=== PATIENT | female | born 1935 | race Caucasian/White ===

== ENCOUNTER → 2017-02-21 | Outpatient (CLI) | payer MEDICARE, BC ==
--- NOTE | 2017-02-21 11:09 | US ---
EXAMINATION TYPE: US venous doppler duplex LE RT DATE OF EXAM: 02/21/2017 9:49 AM COMPARISON: NONE CLINICAL HISTORY: M79.604 PAIN IN RT LEG. RT lower lateral ankle slow healing ulcer; Wound Care [place] r patient; prior Right arm DVT and is on Coumadin; AFIB too. SIDE PERFORMED: Right TECHNIQUE: The lower extremity deep venous system is examined utilizing real time linear array sonog marissa with graded compression, doppler sonography and color-flow sonography. VESSELS IMAGED: Common Femoral Vein Deep Femoral Vein Greater Saphenous Vein * Femoral Vein Popliteal Vein Small Saphenous Vein * Proximal Calf Veins (* superficial vessels) Right Leg: Negative for Acute DVT. Intimal wall thickening is noted at valves at upper Femoral Vein and upper Deep Femoral Vein.; No valvular insufficiency is detected in right deep venous system. Grayscale, color doppler, spectral doppler imaging performed of the deep veins of the lower extremiti es. There is normal flow, compressibility, vascular waveforms. IMPRESSION: No evidence of deep venous thrombosis of the right lower extremity.
== END | disposition home or self-care (01) ==
LOC: RADUSWWP 09:22
PROVIDERS: ATTEND Internal Medicine Infectious Disease
DX: I87.2 Venous insufficiency (chronic) (peripheral) (principal); M79.604 Pain in right leg
CPT/HCPCS: 93923

== ENCOUNTER 2017-04-09 06:46 | Day surgery (SDC) | payer MEDICARE, BC ==
[~2017-04-09 06:46] MED LIST: HEPARIN SODIUM,PORCINE 5,000 UNIT/ML 1 ML VIAL SQ ONE; LACTATED RINGERS 1,000 ML IV SCH; LIDOCAINE 1% 20 ML VIAL (10MG/ML) FOR IV START INTRADERMA PRN; ONDANSETRON 4 MG/2 ML VIAL IVP ONE; Pre Op ABX Message 1 EACH MISC MISCELLANE ONE
[2017-04-09 07:47] LABS: INR 1.2 (<1.2); Prothrombin Time 11.6 sec (9.0-12.0)
[2017-04-09] MEDS ORDERED: METHYLENE BLUE 10 MG/ML (10 ML VIAL) INJ ONE ×2 (07:48→09:50)
[2017-04-09] MEDS ORDERED: LIDOCAINE 1% INJ 10MG/ML (20 ML MDV) SQ ONE (08:19)
[2017-04-09] MEDS ORDERED: ePHEDrine SULFATE/0.9% NACL/PF 50 MG/5 ML SYRINGE IV ONE (09:34)
[2017-04-09] MEDS ORDERED: PROPOFOL 10 MG/ML 20 ML VIAL IV ONE (09:34)
[2017-04-09] MEDS ORDERED: ACETAMINOPHEN IV (For NPO) 1,000 MG/100 ML VIAL ONE (09:34)
[2017-04-09] MEDS ORDERED: LIDOCAINE 1% INJ 10MG/ML (20 ML MDV) ONE (09:34)
[2017-04-09] MEDS ORDERED: SODIUM CHLORIDE 0.9% 50 ML with ceFAZolin 2,000 MG IV ONE ×2 (09:34)
[2017-04-09] MEDS ORDERED: fentaNYL (PF) 50 MCG/ML 2 ML AMP ONE (09:34)
--- NOTE | 2017-04-09 09:53 | NM ---
EXAMINATION TYPE: NM sentinel node injection DATE OF EXAM: 04/09/2017 COMPARISON: NONE HISTORY: Recent diagnosis of left breast cancer TECHNIQUE AND FINDINGS: The procedure of sentinel lymph node injection was explained to the patient. The benefits, alternatives, and risks were discussed. An informed consent was then obtained. Overlying skin is cleaned with sterile alcohol. Lidocaine buffered with bicarbonate was used as anes thetic into the skin and subcutaneous tissue surrounding the nipple. Following this, 535 uCi Tc 99m Filtered Sulfur Colloid was injected into 4 equivalent doses at 12, 3, 6, and 9:00 position surroundi ng the left nipple intradermally. The injection sites were massaged by mineral technologist for 10 minutes after injection. T he patient tolerated the procedure well without any immediate complication. The patient was kept in the radiology department for short stay after the procedure and then taken to surgery for surgical pr ocedure what is presumed intraoperative gamma probe will be used for sentinel lymph node detection. IMPRESSION: Successful left breast radiotracer injection for sentinel node localization as above.
[2017-04-09] MEDS ORDERED: BUPIVACAIN-EPI 0.5%-1:200,000 30 ML VIAL SQ ONE ×2 (10:06)
--- NOTE | 2017-04-09 11:17 | P.OP ---
Date of Procedure: 04/09/17 Preoperative Diagnosis: Left breast cancer Atrial fibrillation Cardiac pacemaker Postoperative Diagnosis: Same Procedure(s) Performed: Left breast wire localization lumpectomy (partial mastectomy) using two wires Left sentinel lymph node biopsy using radioactive tracer and methylene blue Closure of the resulting defect in 3 layers- Cavity measures 8.5x4.5 x 3 cm Anesthesia: ANAIS, local Surgeon: Sandy Galvin Estimated Blood Loss (ml): 10 IV fluids (ml): 700 Pathology: other Condition: other (ASA 3) Disposition: PACU Indications for Procedure: 82 years old female presents with biopsy-proven left breast cancer. Informed consent obtained and she elected to undergo left breast lumpectomy with sentinel lymph node biopsy with possible axillary lymph node dissection. She had wire localization 2 by radiology for the single lesion. Operative Findings: [place] lymph node 2 negative for malignancy Description of Procedure: The patient underwent wire localization x 2 of left breast abnormality and injection of radioisotope in the radiology department. She was brought to the operating room and placed in supine position with both arms out. 3 mL of methylene blue was injected in the subdermal plane at 4 quadrants around the areola and the breast was massaged for 5 minutes . General anesthesia was given.No muscle relaxants were given. Chlorhexidine was used to prep the left breast and left axilla taking care not to dislodge the wires exiting from the left breast. Sterile drapes were applied. A timeout was performed to verify correct patient and correct procedure. Patient was confirmed to receive perioperative IV antibiotics, heparin 5000 units subcutaneous injection for the VTE prophylaxis and bilateral SCDs were placed. A hand-held gamma probe was used to detect signals overlying the breast. Radioisotope signal obtained in the axilla just above the inferior hairline. A 3 cm incision was made below the left axillary hairline and dissection was carried out to identify blue node. After entering the clavicopectoral fascia, three blue areas were identified. The gamma probe was placed in contact with the node and high counts were recorded. Three blue nodes were identified and sent as sentinel lymph node for frozen section. [place] lymph nodes were negative for malignancy. The resulting cavity was checked for hemostasis. This was closed in layers using 3-0 Vicryl interrupted sutures and 4-0 Monocryl running subcuticular sutures. A 3 cm elliptical skin incision was made overlying the two guidewires exiting laterally along the left breast. The wire was delivered into the wound. Dissection was then taken down circumferentially using Bovie electrocautery taking care to include the entire localizing wires and a wide margin of grossly normal tissue upto the chest wall.The specimen and the localizing wire were removed. Inking was done as per protocol except yellow marked lateral and orange marked medial margins.The specimen was sent to radiology which confirmed that the wire and clip were within the excised specimen. Surgical clips were placed along the cavity service a marker . The cavity was checked for hemostasis and measured 8.5x 4.5x 3 cm The cavity was then closed in 3 layers using 3-0 interrupted Vicryl and 4-0 running Monocryl subcuticular sutures. Dermabond was applied. Sponge, instrument and needle count were correct 2. Patient tolerated the procedure well and was taken to postanesthesia care unit in stable condition Final Pathologic Diagnosis A. SOFT TISSUE, LEFT AXILLA, BIOPSY OF SENTINEL NODE #1: BENIGN VASCULARIZED FIBROADIPOSE TISSUE. LYMPH NODE TISSUE IS NOT IDENTIFIED. B. LYMPH NODE, LEFT AXILLA, SENTINEL LYMPH NODE BIOPSY #2: LYMPH NODE NEGATIVE FOR METASTASIS. CYTOKERATIN 7 AND LARRY IMMUNOHISTOCHEMICAL STAINS ARE CONFIRMATORY (CONTROLS APPROPRIATE). C. LYMPH NODE, LEFT AXILLA, SENTINEL LYMPH NODE BIOPSY #3: LYMPH NODE NEGATIVE FOR METASTASIS. CYTOKERATIN 7 AND LARRY IMMUNOHISTOCHEMICAL STAINS ARE CONFIRMATORY (CONTROLS APPROPRIATE). D. 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 FIBROCYSTIC CHANGE (FIBROSIS, CYST FORMATION, APOCRINE METAPLASIA, ADENOSIS, COLUMNAR CELL CHANGE FOCALLY WITH FLAT EPITHELIAL ATYPIA, AND DUCT HYPERPLASIA FOCALLY WITH ATYPIA CONSISTENT WITH ATYPICAL DUCTAL HYPERPLASIA). INTRADUCTAL PAPILLOMA WITH SCLEROSIS. BIOPSY SITE CHANGE. Notes SURGICAL PATHOLOGY CANCER CASE SUMMARY - INVASIVE CARCINOMA OF THE BREAST Specimen Identification Procedure: Excision with image guided localization. Lymph Node Sampling: [place] lymph node. Specimen Laterality: Left. Tumor Size - Size of Largest Invasive Carcinoma: Greatest dimension of largest focus of invasion greater than 1 mm: 12 mm. Histologic Type: Invasive Ductal Carcinoma with focal cribriform features. Histologic Grade: [place] Histologic Score Glandular (Acinar)/Tubular Differentiation: 3. Nuclear Pleomorphism: 3. Mitotic Rate: 1. Overall Grade: Grade 2 (score of 7). Tumor Focality: Single focus of invasive carcinoma. Ductal Carcinoma In Situ (DCIS) : DCIS is present. Extensive Intraductal Component: Not identified though DCIS is identified outside of the invasive focus. Nuclear Grade: Grade II to Grade III (intermediate to high). Necrosis: Present, central (expansive "comedo" necrosis). Margins: Invasive carcinoma: Margins uninvolved by invasive carcinoma. Distance from closest margin: Invasive carcinoma is present within 2 mm from the black inked margin of resection and 3 mm from the purple inked margin of resection (purple inked margin indicated on the requisition form to be posterior ). DCIS: Margins negative for duct carcinoma in situ. Distance from closest margin: Carcinoma in situ is less than 1 mm from the purple inked margin (indicated on the requisition form as posterior), less than 0.5 mm from the green inked margin and less than 0.5 mm from margin with purple and green ink (blue ink is also identified but favored to be contaminant). Regional Lymph Nodes Total Number of Lymph Nodes Examined ([place] and non-sentinel): 2. Number of [place] Lymph Nodes Examined: 2. Pathologic Staging Primary Tumor: pT1c (tumor greater than 10 mm but less than or equal to 20 mm in greatest dimension). Regional Lymph Nodes Modifier: SN (only sentinel nodes evaluated). Category: pN0 (i-) Distant Metastasis: No regional lymph node metastasis histologically, negative IHC. Ancillary Studies: Ancillary studies were previously performed at an outside institution to include HER2 studies by IHC and FISH. Immunohistochemical stains are performed with appropriate controls and demonstrate focal reactivity around tumor cells with cytokeratin 5/6 and p63 consistent with duct carcinoma insitu. The tumor cells are non-reactive with cytokeratin 5/6.
[2017-04-09 11:18] VITALS: TEMP 96.8
[2017-04-09 12:06] VITALS: RESP 18
[2017-04-09 13:00] VITALS: BP 120/63; PULSE 62
--- NOTE | 2017-04-09 16:22 | MM ---
EXAMINATION TYPE: MG pre op needle loc LT, MG surgical specimen LT DATE OF EXAM: 04/09/2017 COMPARISON: NONE CLINICAL HISTORY: Left breast cancer, surgical excision with request for mammographic guided needle localization. TECHNIQUE: Needle localization with wire placement and surgical excision of area of concern in the left breast. FINDINGS: The procedure of needle localization with wire placement and than surgical excision was explained to the patient. Benefits, alternatives, and risks were discussed. An informed consent was then obtained. The shortest pathway for procedure was chosen from lateral to medial. The overlying skin was prepped and draped in usual sterile fashion. Lidocaine was used as anesthetic into the skin and subcutaneous tissue up to the level of area of concern. A 7 cm needle was used. It was placed via a lateral medial approach under mammographic guidance. Subsequent 90 degrees mammogram show the needle to be in satisfactory position relative to the clip. At this point, wire was placed and the needle was withdrawn. The wire was fixed to patient's skin. Images were marked for surgeon. Reinforced segment was adjacent to the biopsy marker. A second 7 cm needle was inserted posterior to the clip at the anterior margin of the mammographic mass at the request of the surgeon after lidocaine was utilized as anesthetic and the skin and subcutaneous tissues up to the area of concern. It was placed via a lateral medial approach under mammographic guidance. Subsequent 90 degree mammogram showed the needle to be in satisfactory position in relation to the mammographic mass. The wire was placed and the needle was withdrawn. The wire was fixed to the patient's skin and images were marked for the surgeon. The wire is in satisfactory position with the reinforced segment within the anterior margin of the mammographic mass. The patient tolerated the procedure well without any immediate complication. The patient was kept in the radiology department for short stay after the procedure and then taken to surgery for surgical excision. Targeted clip and mammographic mass as well as and wire are identified in specimen mammogram. The patient was kept in hospital for short stay after the procedure and then discharged home in stable condition. IMPRESSION: Successful, uncomplicated needle localization with wire placement and surgical excision of the mammographic mass, full extent of the localization wires and biopsy marker in the left breast, full pathology results to follow. Pathology Results: Malignant A. SOFT TISSUE, LEFT AXILLA, BIOPSY OF SENTINEL NODE #1: BENIGN VASCULARIZED FIBROADIPOSE TISSUE. LYMPH NODE TISSUE IS NOT IDENTIFIED. B. LYMPH NODE, LEFT AXILLA, SENTINEL LYMPH NODE BIOPSY #2: LYMPH NODE NEGATIVE FOR METASTASIS. CYTOKERATIN 7 AND LARRY IMMUNOHISTOCHEMICAL STAINS ARE CONFIRMATORY (CONTROLS APPROPRIATE). C. LYMPH NODE, LEFT AXILLA, SENTINEL LYMPH NODE BIOPSY #3: LYMPH NODE NEGATIVE FOR METASTASIS. CYTOKERATIN 7 AND LARRY IMMUNOHISTOCHEMICAL STAINS ARE CONFIRMATORY (CONTROLS APPROPRIATE). D. 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 FIBROCYSTIC CHANGE (FIBROSIS, CYST FORMATION, APOCRINE METAPLASIA, ADENOSIS, COLUMNAR CELL CHANGE FOCALLY WITH FLAT EPITHELIAL ATYPIA, AND DUCT HYPERPLASIA FOCALLY WITH ATYPIA CONSISTENT WITH ATYPICAL DUCTAL HYPERPLASIA). INTRADUCTAL PAPILLOMA WITH SCLEROSIS. BIOPSY SITE CHANGE. Recommendation Surgical consult of the left breast. KEON
== END 2017-04-09 13:23 | disposition home or self-care (01) ==
LOC: OR 06:46
PROVIDERS: ATTEND Surgery
DX: D05.12 Intraductal carcinoma in situ of left breast (principal); N60.32 Fibrosclerosis of left breast; N60.02 Solitary cyst of left breast; N60.82 Other benign mammary dysplasias of left breast; N60.22 Fibroadenosis of left breast; N60.92 Unspecified benign mammary dysplasia of left breast; D24.2 Benign neoplasm of left breast; I10 Essential (primary) hypertension; E03.9 Hypothyroidism, unspecified; I48.91 Unspecified atrial fibrillation; Z79.01 Long term (current) use of anticoagulants; Z86.718 Personal history of other venous thrombosis and embolism; Z87.891 Personal history of nicotine dependence; I49.9 Cardiac arrhythmia, unspecified; Z82.49 Family history of ischemic heart disease and other diseases of the circulatory system; G51.0 Bell's palsy; Z95.0 Presence of cardiac pacemaker; G62.9 Polyneuropathy, unspecified; H93.19 Tinnitus, unspecified ear; Z79.899 Other long term (current) drug therapy; E55.9 Vitamin D deficiency, unspecified; Z91.011 Allergy to milk products
CPT/HCPCS: 19301; 38500; 88305; 85610; 88342; 88331; 88307; 88341; 76098; 19281; 38792; A9541; J1644; J2405; J2001; Q9968; J3010; J0690; J0131; J2704

== ENCOUNTER 2017-10-25 10:35 | Emergency (ER) | payer MEDICARE, BC ==
[2017-10-25 10:57] VITALS: RESP 18
--- NOTE | 2017-10-25 11:16 | ED ---
General Adult HPI - General Chief complaint: Recheck/Abnormal Lab/Rx Stated complaint: Muscle aches and sore throat Time Seen by Provider: 10/25/17 10:45 Source: patient, RN notes reviewed Mode of arrival: ambulatory Limitations: no limitations - History of Present Illness Initial comments: This is an 82-year-old female who presents emergency Department stating since Friday she has been more fatigued has a little bit of a sore throat has a slight headache that comes and goes and states that she has diffuse abdominal pain. Patient states it is in no particular area in her abdomen just kind of diffusely and she believes it might be secondary to some constipation which she gets occasionally. Patient denies any fever chills. Patient states she might be a little more short of breath than normal. Patient denies any dysuria hematuria urinary frequency. Patient denies any significant cough patient denies any chest pain or palpitations. - Related Data Home Medications Medication Instructions Recorded Confirmed B Complex-Vit C-Vit E-Zinc [Z-Bec] 1 tab PO DAILY 02/04/17 10/20/17 Cholecalciferol [Vitamin D3] 1,000 unit PO DAILY 02/04/17 10/20/17 Folic Acid 0.8 mg PO DAILY 02/04/17 10/20/17 Garlic 1 each PO DAILY 02/04/17 10/20/17 Levothyroxine Sodium [Levoxyl] 112 mcg PO QAM 02/04/17 10/20/17 Niacin (Inositol Niacinate) 500 mg PO BID 02/04/17 10/20/17 [Niacin 500 mg Capsule] Warfarin [Coumadin] 5 mg PO HS 02/04/17 10/20/17 amLODIPine [Norvasc] 2.5 mg PO QAM 02/04/17 10/20/17 Cyanocobalamin (Vitamin B-12) 1 tab PO DAILY 04/04/17 10/20/17 [Vitamin B-12] L.acidoph,Paracasei, B.lactis 1 tab PO DAILY 04/04/17 10/20/17 [Probiotic] Melatonin 1.5 mg PO HS PRN 04/04/17 10/20/17 Metoprolol Succinate (ER) [Toprol 25 mg PO QAM 04/04/17 10/20/17 XL] Valsartan/Hydrochlorothiazide 1 tab PO QAM 04/04/17 10/20/17 [Valsartan-Hctz 320-25 mg Tab] [facility] 1 tab PO DAILY 04/04/17 10/20/17 Letrozole [Femara] 2.5 mg PO DAILY 09/03/17 10/20/17 Omeprazole [PriLOSEC] 20 mg PO AC-BRKFST 09/03/17 10/20/17 Previous Rx's Medication Instructions Recorded Doxycycline Monohydrate [Monodox] 100 mg PO Q12HR #20 cap 10/16/17 Allergies Allergy/AdvReac Type Severity Reaction Status Date / Time No Known Allergies Allergy Verified 10/25/17 10:57 Review of Systems ROS Statement: Those systems with pertinent positive or pertinent negative responses have been documented in the HPI. ROS Other: All systems not noted in ROS Statement are negative. Past Medical History Past Medical History: Cancer, Deep Vein Thrombosis (DVT), Hypertension, Osteoarthritis (OA), Thyroid Disorder Additional Past Medical History / Comment(s): RECENT PATIENT IN WOUND CENTER, WOUND ON RIGHT heel, has dressing on. 03/2017 left breast lumpectomy, 2009: Right breast precancerous cell, removed surically, no mastectomy, had radiation @ [facility]/Dr. JOYA. [facility] 2006 RESIDUAL DROOPING LEFT EYE AND LEFT SIDE OF FACE, SHINGLES History of Any Multi-Drug Resistant Organisms: None Reported Past Surgical History: Appendectomy, Breast Surgery, Cholecystectomy, Hysterectomy, Joint Replacement, Pacemaker, Tonsillectomy Additional Past Surgical History / Comment(s): Cataract surgery bilat eyes 2008. Bilat knee replacement 2012 Dr. Lindsay. Neck surgery pinched nerves. left breast lumpectomy Past Anesthesia/Blood Transfusion Reactions: No Reported Reaction Type of Cardiac Device: Permanent Pacemaker Device Placement Date:: 2011 Past Psychological History: No Psychological Hx Reported Smoking Status: Former smoker Past Alcohol Use History: Rare Past Drug Use History: None Reported - Past Family History Father History Unknown: Yes Family Medical History: Congestive Heart Failure (CHF) Additional Family Medical History / Comment(s): rheumatic fever. Mother History Unknown: Yes Family Medical History: Liver Disease General Exam - General Exam Comments Initial Comments: GENERAL: Patient is well-developed and well-nourished. Patient is nontoxic and well- hydrated and is in mild distress. ENT: Neck is soft and supple. No significant lymphadenopathy is noted. Oropharynx is clear. Moist mucous membranes. Neck has full range of motion without eliciting any pain. EYES: The sclera were anicteric and conjunctiva were pink and moist. Extraocular movements were intact and pupils were equal round and reactive to light. Eyelids were unremarkable. PULMONARY: Unlabored respirations. Good breath sounds bilaterally. No audible rales rhonchi or wheezing was noted. CARDIOVASCULAR: There is a regular rate and rhythm without any murmurs gallops or rubs. ABDOMEN: Soft and nontender with normal bowel sounds. No palpable organomegaly was noted. There is no palpable pulsatile mass. SKIN: Skin is clear with no lesions or rashes and otherwise unremarkable. NEUROLOGIC: Patient is alert and oriented x3. Cranial nerves II through XII are grossly intact. Motor and sensory are also intact. Normal speech, volume and content. Symmetrical smile. MUSCULOSKELETAL: Normal extremities with adequate strength and full range of motion. No lower extremity swelling or edema. No calf tenderness. Patient has a boot on the right leg which she does not want me to remove because the doctor just soft. LYMPHATICS: No significant lymphadenopathy is noted PSYCHIATRIC: Normal psychiatric evaluation. Limitations: no limitations Course Vital Signs 10/25/17 10:53 Temperature 97.9 F Pulse Rate 89 Respiratory 18 Rate Blood Pressure 123/74 O2 Sat by Pulse 97 Oximetry Medical Decision Making - Medical Decision Making EKG shows a paced rhythm at 71 bpm QRS is 80 QT interval 396 QTC is 4:30. Patient has T-wave inversions in leads V4 V5 and V6 which were her intrinsic rhythm as well as leads 2 and 3. However there is no recent old EKG to compare to. Patient is not experiencing any chest pain. - Lab Data Result diagrams: 10/25/17 11:40 10/25/17 11:40 Lab Results 10/25/17 10/25/17 10/25/17 Range/Units 11:40 11:40 11:40 WBC 7.2 (3.8-10.6) k/uL RBC 5.51 H (3.80-5.40) m/uL Hgb 15.8 (11.4-16.0) gm/dL Hct 48.2 H (34.0-46.0) % MCV 87.4 (80.0-100.0) fL MCH 28.8 (25.0-35.0) pg MCHC 32.9 (31.0-37.0) g/dL RDW 14.0 (11.5-15.5) % Plt Count 175 (150-450) k/uL Neutrophils % 72 % Lymphocytes % 21 % Monocytes % 5 % Eosinophils % 1 % Basophils % 0 % Neutrophils # 5.2 (1.3-7.7) k/uL Lymphocytes # 1.5 (1.0-4.8) k/uL Monocytes # 0.3 (0-1.0) k/uL Eosinophils # 0.1 (0-0.7) k/uL Basophils # 0.0 (0-0.2) k/uL PT 38.6 H (9.0-12.0) sec INR 4.3 H (<1.2) D-Dimer 0.30 (<0.60) mg/L FEU Sodium 134 L (137-145) mmol/L Potassium 3.7 (3.5-5.1) mmol/L Chloride 97 L (98-107) mmol/L Carbon Dioxide 25 (22-30) mmol/L Anion Gap 12 mmol/L BUN 17 (7-17) mg/dL Creatinine 0.56 (0.52-1.04) mg/dL Est GFR (CKD-EPI)AfAm >90 (>60 ml/min/1.73 sqM) Est GFR (CKD-EPI)NonAf 87 (>60 ml/min/1.73 sqM) Glucose 99 (74-99) mg/dL Calcium 8.9 (8.4-10.2) mg/dL Total Bilirubin 1.3 (0.2-1.3) mg/dL AST 43 H (14-36) U/L ALT 33 (9-52) U/L Alkaline Phosphatase 65 (38-126) U/L Troponin I (0.000-0.034) ng/mL Total Protein 6.4 (6.3-8.2) g/dL Albumin 3.8 (3.5-5.0) g/dL Urine Color Urine Appearance (Clear) Urine pH (5.0-8.0) Ur Specific [place] (1.001-1.035) Urine Protein (Negative) Urine Glucose (UA) (Negative) Urine Ketones (Negative) Urine Blood (Negative) Urine Nitrite (Negative) Urine Bilirubin (Negative) Urine Urobilinogen (<2.0) mg/dL Ur Leukocyte Esterase (Negative) Urine RBC (0-5) /hpf Urine WBC (0-5) /hpf Ur Squamous Epith Cells (0-4) /hpf Urine Bacteria (None) /hpf Hyaline Casts (0-2) /lpf Urine Mucus (None) /hpf Influenza Type A RNA (Not Detectd) Influenza Type B (PCR) (Not Detectd) 10/25/17 10/25/17 10/25/17 Range/Units 11:40 11:40 11:40 WBC (3.8-10.6) k/uL RBC (3.80-5.40) m/uL Hgb (11.4-16.0) gm/dL Hct (34.0-46.0) % MCV (80.0-100.0) fL MCH (25.0-35.0) pg MCHC (31.0-37.0) g/dL RDW (11.5-15.5) % Plt Count (150-450) k/uL Neutrophils % % Lymphocytes % % Monocytes % % Eosinophils % % Basophils % % Neutrophils # (1.3-7.7) k/uL Lymphocytes # (1.0-4.8) k/uL Monocytes # (0-1.0) k/uL Eosinophils # (0-0.7) k/uL Basophils # (0-0.2) k/uL PT (9.0-12.0) sec INR (<1.2) D-Dimer (<0.60) mg/L FEU Sodium (137-145) mmol/L Potassium (3.5-5.1) mmol/L Chloride (98-107) mmol/L Carbon Dioxide (22-30) mmol/L Anion Gap mmol/L BUN (7-17) mg/dL Creatinine (0.52-1.04) mg/dL Est GFR (CKD-EPI)AfAm (>60 ml/min/1.73 sqM) Est GFR (CKD-EPI)NonAf (>60 ml/min/1.73 sqM) Glucose (74-99) mg/dL Calcium (8.4-10.2) mg/dL Total Bilirubin (0.2-1.3) mg/dL AST (14-36) U/L ALT (9-52) U/L Alkaline Phosphatase (38-126) U/L Troponin I <0.012 (0.000-0.034) ng/mL Total Protein (6.3-8.2) g/dL Albumin (3.5-5.0) g/dL Urine Color Yellow Urine Appearance Clear (Clear) Urine pH 7.0 (5.0-8.0) Ur Specific [place] 1.017 (1.001-1.035) Urine Protein Trace H (Negative) Urine Glucose (UA) Negative (Negative) Urine Ketones Negative (Negative) Urine Blood Negative (Negative) Urine Nitrite Negative (Negative) Urine Bilirubin Negative (Negative) Urine Urobilinogen <2.0 (<2.0) mg/dL Ur Leukocyte Esterase Small H (Negative) Urine RBC 1 (0-5) /hpf Urine WBC 4 (0-5) /hpf Ur Squamous Epith Cells 2 (0-4) /hpf Urine Bacteria Rare H (None) /hpf Hyaline Casts 1 (0-2) /lpf Urine Mucus Rare H (None) /hpf Influenza Type A RNA Not Detected (Not Detectd) Influenza Type B (PCR) Detected H (Not Detectd) Disposition Clinical Impression: Influenza Disposition: HOME SELF-CARE Condition: Good Instructions: Influenza (ED) Is patient prescribed a controlled substance at d/c from ED?: No Referrals: Flavio Dalton MD [Primary Care Provider] - 1-2 days Time of Disposition: 12:56
--- NOTE | 2017-10-25 11:58 | XR ---
EXAMINATION TYPE: XR chest 2V DATE OF EXAM: 10/25/2017 HISTORY: Difficulty breathing . REFERENCE: Previous study dated 12/15/2012. FINDINGS: There are multiple previous fusions within the cervical spine. There is a bipolar pacemaker in place on the left. The lungs are overinflated. There is some atelectasis along the major fissure on the right. Pleural s paces are clear. The heart is mildly enlarged. There is unfolding and ectasia of the thoracic aorta. IMPRESSION: 1. COPD. 2. CARDIOMEGALY. 3. MILD ATELECTASIS, RIGHT MIDDLE LOBE.
[2017-10-25 12:04] LABS: Basophils % (A) 0 %; Eosinophils # (A) 0.1 k/uL (0-0.7); Eosinophils % (A) 1 %; HCT 48.2 % (34.0-46.0); HGB 15.8 gm/dL (11.4-16.0); Lymphocytes # (A) 1.5 k/uL (1.0-4.8); Lymphocytes % (A) 21 %; MCH 28.8 pg (25.0-35.0); MCHC 32.9 g/dL (31.0-37.0); MCV 87.4 fL (80.0-100.0); Mean Platelet Volume 8.7; Monocytes # (A) 0.3 k/uL (0-1.0); Monocytes % (A) 5 %; Neutrophils # (A) 5.2 k/uL (1.3-7.7); Neutrophils % (A) 72 %; Platelet Count 175 k/uL (150-450); RBC 5.51 m/uL (3.80-5.40); WBC 7.2 k/uL (3.8-10.6)
[2017-10-25 12:11] LABS: Appearance,Urine Clear (Clear); Bacteria,Urine Rare /hpf; Bilirubin,Urine Negative (Negative); Blood,Urine Negative (Negative); Color,Urine Yellow; Glucose,Urine (UA) Negative (Negative); Hyaline Casts,Urine 1 /lpf (0-2); Ketones,Urine Negative (Negative); Leukocyte Esterase,Urine Small (Negative); Mucus,Urine Rare /hpf; Nitrite,Urine Negative (Negative); Protein,Urine Trace (Negative); RBC,Urine 1 /hpf (0-5); Specific Gravity,Urine 1.017 (1.001-1.035); Squamous Epithelial Cell,Urine 2 /hpf (0-4); Urobilinogen,Urine <2.0 mg/dL (<2.0); WBC,Urine 4 /hpf (0-5)
[2017-10-25 12:17] LABS: Albumin 3.8 g/dL (3.5-5.0); Anion Gap 12 mmol/L; Calcium 8.9 mg/dL (8.4-10.2); Carbon Dioxide 25 mmol/L (22-30); Chloride 97 mmol/L (98-107); Glucose 99 mg/dL (74-99); Sodium 134 mmol/L (137-145); Total Bilirubin 1.3 mg/dL (0.2-1.3); Total Protein 6.4 g/dL (6.3-8.2)
[2017-10-25 12:18] LABS: D-Dimer 0.3 mg/L FEU (<0.60); INR 4.3 (<1.2); Prothrombin Time 38.6 sec (9.0-12.0)
[2017-10-25 12:25] LABS: Potassium 3.7 mmol/L (3.5-5.1)
[2017-10-25 12:26] LABS: ALT 33 U/L (9-52); AST 43 U/L (14-36); Alkaline Phosphatase 65 U/L (38-126); Blood Urea Nitrogen 17 mg/dL (7-17)
[2017-10-25 13:08] VITALS: BP 138/87; PULSE 87; TEMP 97.4
== END 2017-10-25 13:08 | disposition home or self-care (01) ==
LOC: EC 10:35
DX: J11.1 Influenza due to unidentified influenza virus with other respiratory manifestations (principal); R06.02 Shortness of breath; R10.84 Generalized abdominal pain; I10 Essential (primary) hypertension; E07.9 Disorder of thyroid, unspecified; Z86.718 Personal history of other venous thrombosis and embolism; Z87.891 Personal history of nicotine dependence; Z85.3 Personal history of malignant neoplasm of breast; Z79.01 Long term (current) use of anticoagulants; Z79.899 Other long term (current) drug therapy
CPT/HCPCS: 36415; 71046; 80053; 81001; 84484; 85025; 85379; 85610; 87502; 93005; 99284

== ENCOUNTER → 2018-10-14 | Outpatient (CLI) | payer MEDICARE, BC ==
--- NOTE | 2018-10-18 19:37 | ENG ---
ELECTRONYSTAGMOGRAM REPORT VNG INDICATIONS: Vertigo starting in July 2018, gradual getting worse as one spell a day, lasting 10- 30 seconds. Can be precipitated by looking up or head back position, bending over or head down position. Denies hearing loss with steady tinnitus bilaterally and no pain, fullness or pressure in either ear. Saccades shows intact peak velocities accuracies and latencies. Case with fixation shows no nystagmus in any of the directions of gaze including centrally with vision denied. Tracking is fair showing no significant breakups. Optokinetic nystagmus shows asymmetry at faster speeds, greater than 50%. Static position testing shows no nystagmus in any of the positions tested including sitting, supine, head right, head left, right side and left side with eyes open or vision denied. Brooklyn-Hallpike maneuver was not completed due to neck and back pain. Caloric testing shows a 10% unilateral left lower weakness, which is within normal limits. IMPRESSIONS: Fair tracking and optokinetic nystagmus asymmetry greater than 50% are indicated favoring central nervous system dysfunction. Other features of this VNG are unremarkable. MMODL / IJN: [id number] /
== END | disposition home or self-care (01) ==
LOC: NEUROMAIN 06:46
PROVIDERS: ATTEND Psychiatry & Neurology Neurology
DX: H55.00 Unspecified nystagmus (principal)
CPT/HCPCS: 92537; 92540

== ENCOUNTER 2019-08-16 12:26 | Inpatient (IN) | payer MEDICARE, BC ==
--- NOTE | 2019-08-16 14:18 | ED ---
Neuro HPI - General Chief Complaint: Neuro Symptoms/Deficit Stated Complaint: stroke Time Seen by Provider: 08/16/19 12:30 Source: EMS, RN notes reviewed Mode of arrival: EMS Limitations: altered mental status, physical limitation - History of Present Illness Is the patient presenting with stroke symptoms?: Yes Last Known Well Date: 08/15/19 Last Known Well Time: 19:30 Initial Comments: The patient is an 84-year-old female with past medical history of DVT, hypertension, pacemaker who presents to the emergency department with altered mental status. The patient is a transfer from [facility]. Family is at bedside and provides the history. They state that the patient was last known well yesterday around 7:30 PM when someone had spoken with her. They then attempted to call her around 9 and there was no answer. Family went to the house today and they found her sitting upright in a chair with altered mental status. She had visual deviation to the left complete paralysis of her right side. She was unable to answer any questions. They called EMS and the patient was taken into [facility] where they found a very large MCA stroke. The patient was outside the TPA window as well as a thrombectomy window. They were requesting the patient to be DO NOT RESUSCITATE and DO NOT INTUBATE. The patient was transferred to our facility for further neurologic evaluation. The patient continues to have forced left deviation and weakness on the right side. She is unable to answer any questioning. Family states that she has not felt well for a couple of days. The remainder of the HPI is unable to be obtained because the patient's current status - Related Data Home Medications: Previous Rx's Medication Instructions Recorded Atropine Ophth Soln 1% 5Ml [Isopto 1 drop SUBLINGUAL Q4H PRN #1 bottle 08/19/19 Atropine 1% 5Ml] LORazepam [Ativan] 0.5 mg PO Q4H PRN #3 tab 08/19/19 MORPHINE ORAL BELL CONC 20mg/mL 5 mg PO Q4H PRN 3 Days #9 ml 08/19/19 [Roxanol Oral Soln Conc 20MG/ML] Allergies/Adverse Reactions: Allergies Allergy/AdvReac Type Severity Reaction Status Date / Time No Known Allergies Allergy Verified 08/16/19 12:41 Review of Systems ROS Statement: Those systems with pertinent positive or pertinent negative responses have been documented in the HPI. ROS Other: All systems not noted in ROS Statement are negative. General Exam Limitations: altered mental status, physical limitation General appearance: lethargic Head exam: Present: atraumatic, normocephalic, normal inspection ENT exam: Present: normal exam, mucous membranes moist, normal external ear exam Respiratory exam: Present: normal lung sounds bilaterally. Absent: respiratory distress, wheezes, rales, rhonchi, stridor Cardiovascular Exam: Present: regular rate, normal rhythm, normal heart sounds. Absent: systolic murmur, diastolic murmur, rubs, gallop, clicks GI/Abdominal exam: Present: soft, normal bowel sounds. Absent: distended, tenderness, guarding, rebound, rigid Extremities exam: Present: other (paralyzed right upper and lower extremity) Neurological exam: Present: other (deviated to the left. Hemiparalysis right upper and lower extremity. Does not follow commands. ) Stroke MDM - Lab Data Result diagrams: 08/19/19 06:10 08/19/19 06:10 - Medical Decision Making Upon arrival patient was placed into room 8. A thorough history and physical exam was obtained. The patient continues to have left-sided deviation. She is able to squeeze her left upper extremity however does not have any movement of her right side. Review of the patient's labs and imaging demonstrates a CT that shows large area cytotoxic edema involving the left MCA territory compatible with acute CVA. Hyperdense left middle cerebral artery. No midline shift. I called and discussed the case with Dr. Kumar. He did recommend 3% saline. I called the pharmacy who stated that that had to go through a central line. I did discuss this with family. They want comfort measures for the patient at this time as well as medical management. They state that the patient would not want to be intubated, have CPR or have a central line. They are refusing treatment with the 3%. I called and discussed this with Dr. Duarte. I also discussed the case with Dr. brewer. Patient will be admitted to the floor. Dr. Duarte does present to evaluates her down here. The patient remained stable awaiting a bed Past Medical History Past Medical History: Cancer, CVA/TIA, Deep Vein Thrombosis (DVT), Hypertension, Osteoarthritis (OA), Thyroid Disorder Additional Past Medical History / Comment(s): RECENT PATIENT IN [facility] C[facility], WOUND ON RIGHT heel, has dressing on. 03/2017 left breast lumpectomy, 2009:Right breast precancerous cell, removed surically, no mastectomy, had radiation @ [facility]/Dr. JOYA. DIAL'S PALSY 2007 RESIDUAL DROOPING LEFT EYE AND LEFT SIDE OF FACE, SHINGLES History of Any Multi-Drug Resistant Organisms: None Reported Past Surgical History: Appendectomy, Breast Surgery, Cholecystectomy, Hysterectomy, Joint Replacement, Pacemaker, Tonsillectomy Additional Past Surgical History / Comment(s): Cataract surgery bilat eyes 2008. Bilat knee replacement 2012 Dr. Lindsay. Neck surgery pinched nerves. left breast lumpectomy Past Anesthesia/Blood Transfusion Reactions: No Reported Reaction Type of Cardiac Device: Permanent Pacemaker Device Placement Date:: 2011 Past Psychological History: No Psychological Hx Reported Smoking Status: Former smoker Past Alcohol Use History: Rare Past Drug Use History: None Reported - Past Family History Father History Unknown: Yes Family Medical History: Congestive Heart Failure (CHF) Additional Family Medical History / Comment(s): rheumatic fever. Mother History Unknown: Yes Family Medical History: Liver Disease Course Vital Signs 08/16/19 08/16/19 08/16/19 12:32 12:34 13:00 Temperature 98.1 F Pulse Rate 73 75 59 L Respiratory 16 Rate Blood Pressure 193/106 190/96 O2 Sat by Pulse 92 L 95 100 Oximetry 08/16/19 08/16/19 08/16/19 13:13 13:30 14:00 Temperature 98.1 F Pulse Rate 74 69 65 Respiratory 16 16 Rate Blood Pressure 181/88 181/88 180/87 O2 Sat by Pulse 100 100 99 Oximetry 08/16/19 08/16/19 08/16/19 14:30 15:00 15:30 Temperature Pulse Rate 61 71 70 Respiratory 16 Rate Blood Pressure 179/88 176/83 185/83 O2 Sat by Pulse 99 100 94 L Oximetry 08/16/19 08/16/19 08/16/19 16:00 16:30 17:00 Temperature Pulse Rate 72 69 80 Respiratory 16 16 Rate Blood Pressure 179/80 166/83 174/86 O2 Sat by Pulse 94 L 94 L 93 L Oximetry 08/16/19 08/16/19 08/16/19 17:30 18:44 19:40 Temperature Pulse Rate 84 84 90 Respiratory 16 Rate Blood Pressure 181/86 181/86 187/100 O2 Sat by Pulse 94 L 94 L 96 Oximetry 08/16/19 08/16/19 08/16/19 20:05 20:47 21:03 Temperature Pulse Rate 87 98 94 Respiratory 16 16 16 Rate Blood Pressure 142/85 197/92 201/95 O2 Sat by Pulse 97 97 96 Oximetry 08/16/19 21:31 Temperature 98.4 F Pulse Rate Respiratory Rate Blood Pressure O2 Sat by Pulse Oximetry Disposition Clinical Impression: Cerebrovascular accident (CVA), Right hemiparesis Disposition: ADMITTED IP TO THIS HOSP Condition: Poor Is patient prescribed a controlled substance at d/c from ED?: No Decision to Admit Reason: Admit from EC Decision Date: 08/16/19 Decision Time: 15:14
[2019-08-16] MEDS ORDERED: NALOXONE 0.4 MG/ML 1 ML VIAL IV PRN (15:16)
[2019-08-16] MEDS: SODIUM CHLORIDE 0.9% 1,000 ML IV SCH (15:53)
--- NOTE | 2019-08-16 17:04 | P.CNNES ---
History of Present Illness Consult date: 08/16/19 Requesting physician: Agnieszka Charlton Reason for Consult: Acute CVA History of Present Illness: Patient is a 84-year-old right-handed female, with history of atrial fibrillation, on anticoagulation with Eliquis. Patient also has history of dementia, but lives on her own. Patient's family states that she does miss some doses of medication, and on the average misses perhaps 3 doses of Eliquis a week. Patient's daughter talked to her last night at 7:30 PM and she was fine. Her other daughter tried to talk to her at 9:45 PM but patient did not respond. She thought that patient may have slept earlier. This morning family went in at 8:45 AM, and patient was in the recliner, with obvious aphasia, right hemiplegic. Patient was brought to [facility]. Patient underwent computed tomography scan of the head, which revealed a large stroke in the left MCA vascular territory. He was transferred to [facility] for neurological evaluation. Patient at present is DO NOT RESUSCITATE, DO NOT INTUBATE, and family does not want any aggressive treatment. They want to keep patient in this hospital with conservative treatment. The tests not available from [facility]. Patient's family was present at this time. Patient is laying comfortably in the bed. Please refer to examination below. Patient is a nonsmoker, does not drink, no diabetes. Patient was not a candidate for TPA, as she clearly came outside the window for TPA. Patient is not a candidate for mechanical thrombectomy either as she came 12 hours after last known well, and computed tomography scan already showing acute ischemia. Review of Systems ROS unobtainable: due to mental status Past Medical History Past Medical History: Cancer, CVA/TIA, Deep Vein Thrombosis (DVT), Hypertension, Osteoarthritis (OA), Thyroid Disorder Additional Past Medical History / Comment(s): RECENT PATIENT IN [facility]OUND CENTER, WOUND ON RIGHT heel, has dressing on. 03/2017 left breast lumpectomy, 2009:Right breast precancerous cell, removed surically, no mastectomy, had radiation @ [facility]/Dr. JOYA. DIAL'S PALSY 2006 RESIDUAL DROOPING LEFT EYE AND LEFT SIDE OF FACE, SHINGLES History of Any Multi-Drug Resistant Organisms: None Reported Past Surgical History: Appendectomy, Breast Surgery, Cholecystectomy, Hysterectomy, Joint Replacement, Pacemaker, Tonsillectomy Additional Past Surgical History / Comment(s): Cataract surgery bilat eyes 2008. Bilat knee replacement 2012 Dr. Lindsay. Neck surgery pinched nerves. left breast lumpectomy Past Anesthesia/Blood Transfusion Reactions: No Reported Reaction Type of Cardiac Device: Permanent Pacemaker Device Placement Date:: 2011 Past Psychological History: No Psychological Hx Reported Smoking Status: Former smoker Past Alcohol Use History: Rare Past Drug Use History: None Reported - Past Family History Father History Unknown: Yes Family Medical History: Congestive Heart Failure (CHF) Additional Family Medical History / Comment(s): rheumatic fever. Mother History Unknown: Yes Family Medical History: Liver Disease Medications and Allergies Home Medications Medication Instructions Recorded Confirmed Type Cholecalciferol [Vitamin D3] 1,000 unit PO DAILY 02/04/17 08/16/19 History Levothyroxine Sodium [Levoxyl] 112 mcg PO QAM 02/04/17 08/16/19 History Metoprolol Succinate (ER) [Toprol 25 mg PO QAM 04/04/17 08/16/19 History XL] Letrozole [Femara] 2.5 mg PO DAILY 09/03/17 08/16/19 History Omeprazole [PriLOSEC] 20 mg PO AC-BRKFST 09/03/17 08/16/19 History Apixaban [Eliquis] 2.5 mg PO BID 08/16/19 08/16/19 History Atorvastatin [Lipitor] 10 mg PO HS 08/16/19 08/16/19 History Calcium Carbonate 500 mg PO BID 08/16/19 08/16/19 History Donepezil [Aricept] 5 mg PO BID 08/16/19 08/16/19 History Losartan/Hydrochlorothiazide 1 tab PO DAILY 08/16/19 08/16/19 History [Losartan-Hctz 100-25 mg Tab] Memantine [Namenda] 5 mg PO BID 08/16/19 08/16/19 History Multivitamins, Thera [Multivitamin 1 tab PO DAILY 08/16/19 08/16/19 History (formulary)] Allergies Allergy/AdvReac Type Severity Reaction Status Date / Time No Known Allergies Allergy Verified 08/16/19 12:41 Physical Examination - Vital Signs Vital Signs: Vital Signs Temp Pulse Resp BP Pulse Ox 08/16/19 15:00 81 16 179/80 97 08/16/19 14:00 75 16 179/88 97 08/16/19 13:13 98.1 F 74 16 181/88 100 08/16/19 12:34 98.1 F 75 16 193/106 95 Intake and Output 08/16/19 08/16/19 08/16/19 06:59 14:59 22:59 Other: Weight 77.1 kg On examination patient is an 84-year-old female, laying comfortably in the bed. Patient is obviously aphasic, with some comprehension. Patient is alert and awake. Patient has left gaze preference. Her pupils are round and reacting. Patient has right visual field deficit. Patient has right facial asymmetry. Patient is right hemiplegic, with arm is completely flaccid, but she does have some movement of her leg. She moves her left side equally. Patient has plantar extensor on the right side. Sensory to touch could not be assessed. Cerebellar functions could not be assessed. Tone is increased in the right arm. Bulk of muscles normal. Assessment and Plan Assessment: * Acute ischemic CVA, left MCA vascular territory. CVA likely cardioembolic from patient's history of atrial fibrillation. Patient has been somewhat noncompliant with Eliquis, and misses about 3 times a week. * Dementia Plan: * CT head of the brain was reviewed. It revealed a very large CVA involving almost the entire left MCA vascular territory. There is slight mass effect, with compression of the left lateral ventricle as compared to the right. No midline shift. I reviewed patient's computed tomography scan of the head on the computer with the patient's family, and answered all their questions. * Patient at present is DO NOT RESUSCITATE, DO NOT INTUBATE, and patient's family wants conservative treatment. * We discussed about trying hypertonic saline for cerebral edema, but family declined. * Nothing by mouth for now. May need an NG tube. * DVT prophylaxis. * Discussed with patient's family in detail.
[2019-08-16] MEDS ORDERED: LORazepam 2 MG/ML INJ IV PRN (18:27)
[2019-08-16] MEDS: PANTOPRAZOLE 40 MG/10 ML VIAL IVP SCH (18:41)
[2019-08-16 18:57] LABS: Appearance,Urine Clear (Clear); Bilirubin,Urine Negative (Negative); Blood,Urine Small (Negative); Color,Urine Yellow; Glucose,Urine (UA) Negative (Negative); Ketones,Urine Trace (Negative); Leukocyte Esterase,Urine Negative (Negative); Mucus,Urine Rare /hpf; Nitrite,Urine Negative (Negative); PH, Urine 6.5 (5.0-8.0); Protein,Urine 1+ (Negative); RBC,Urine 27 /hpf (0-5); Specific Gravity,Urine 1.026 (1.001-1.035); WBC,Urine 1 /hpf (0-5)
--- NOTE | 2019-08-16 23:04 | HP ---
HISTORY AND PHYSICAL DATE OF SERVICE: 08/16/2019 CHIEF COMPLAINTS: Unresponsiveness and weakness of the right side of the body. HISTORY OF PRESENT ILLNESS: This 84-year-old woman with a past medical history of multiple medical problems including significant dementia, history of CVA, TIA, history of DVT, history of DJD, history of wound on the right heel, being followed by Dr. Mary Anne Warren in the outpatient setting, was noted to have significant change in mental status this morning. The patient was last known conscious at 7:30 when somebody spoke to her, but this morning the patient was sitting upright in a chair slumped with change in mental status, significant weakness of the of the right-sided body was noted and the patient taken to [facility]. A large left MCA stroke was noted. The patient was a NO CODE at that time. The patient was apparently outside the window of the tPA, but however the patient transferred to [facility] for Neurology evaluation at this time. The neurologist has seen the patient and the family does not want any aggressive treatment at this time. Because of the multiple complex medical issues, the patient is NO CODE and the patient is slightly more responsive according to the family compared to this morning. The patient admitted for further evaluation and treatment. There is no there is no history of fever, rigors or chills. No history of trauma. The patient unable to give any coherent history. Most of the history taken from my discussion with staff and review of the chart and discussion with the ER physician at this time. PAST MEDICAL HISTORY: History of CVA, TIA, DVT, hypertension, DJD, history of hypothyroidism, history of appendectomy, surgery. MEDICATIONS: Home medications are reviewed and include: 1. Aricept 5 mg p.o. b.i.d. 2. Prilosec 20 mg a.c. breakfast. 3. Multivitamins one p.o. daily. 4. Toprol-XL 25 mg q.h.s. 5. Namenda 5 mg p.o. b.i.d. 6. Losartan hydrochlorothiazide 100/25 p.o. daily. 7. Levothyroxine 112 mcg p.o. q.a.m. 8. Femara 2.5 mg p.o. daily. 9. Vitamin D3 1000 daily. 10.Calcium carbonate 500 mg p.o. b.i.d. 11.Lipitor 10 mg q.h.s. 12.Eliquis 2.5 mg b.i.d. ALLERGIES: None. FAMILY HISTORY: Family history of CHF and rheumatic fever in the family. SOCIAL HISTORY: Previous history of smoking. No history of current smoking or alcohol intake. REVIEW OF SYSTEMS: Review of systems could not be taken, the patient is stuporous. PHYSICAL EXAM: Pulse is 80. Blood pressure 117/85, respirations 16, temp is normal. Pulse ox 93% on room air. HEENT: Conjunctivae normal. Oral mucosa moist. NECK is no jugular venous distention. No carotid bruit. No lymph node enlargement. cardiovascular systems respiration the bases a few scattered rhonchi and crackles. ABDOMEN: Soft, nontender. No mass. LEGS no edema. No swelling. NERVOUS SYSTEM grossly significant right-sided weakness present. Otherwise, skin no ulcers, rashes or bleeding. Joints no active arthropathy. LABS: At this time not available. ASSESSMENT: 1. Acute left MCA territory CVI causing right-sided hemiplegia. 2. Change in mental status metabolic toxic encephalopathy, acute on chronic. 3. History of dementia. 4. History of history of deep vein thrombosis. 5. Hypertension. 6. History of degenerative joint disease. 7. Hypothyroidism. 8. Chronic wound on the right heel. 9. History of right breast surgery. 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 11.History of cholecystectomy. 12.History of degenerative joint disease. 13.Remote history of nicotine dependence. 14.NO CODE, NO CPR and NO VENT. RECOMMENDATIONS AND DISCUSSION: In this 84-year-old woman who presented with multiple complex medical issues, we will monitor the patient closely, continue the current medications, management and symptomatic treatment. We will initiate antiplatelet agents. Otherwise monitor closely. As mentioned earlier, discussed the case at length with the family. The family did not want any invasive management including any central line placement. The patient has significant edema. The overall prognosis extremely guarded because of the extensive dense stroke and multiple other medical issues and we will continue to monitor. We will obtain PT, OT evaluation and speech pathology evaluation. Monitor closely. Monitor sensorium closely. Neuro checks and continue conservative line of treatment. As mentioned earlier, the patient is NO CODE NO CPR NO VENT at this time. Further recommendations to follow. A copy of this dictation being forwarded to Dr. Mary Anne Warren who is the primary physician. MMODL / IJN: [id number] /
[2019-08-17] MEDS: HEPARIN SODIUM,PORCINE 5,000 UNIT/ML 1 ML VIAL SQ SCH ×3 (04:29→21:51)
[2019-08-17] MEDS: LEVOTHYROXINE 112 MCG TAB PO SCH (04:30)
[2019-08-17 06:50] LABS: Basophils # (A) 0.2 k/uL (0-0.2); Basophils % (A) 1 %; Eosinophils # (A) 0.1 k/uL (0-0.7); Eosinophils % (A) 1 %; HCT 50.1 % (34.0-46.0); HGB 15.8 gm/dL (11.4-16.0); Lymphocytes # (A) 2.3 k/uL (1.0-4.8); Lymphocytes % (A) 15 %; MCHC 31.5 g/dL (31.0-37.0); MCV 92.1 fL (80.0-100.0); Mean Platelet Volume 8.4; Monocytes # (A) 0.6 k/uL (0-1.0); Monocytes % (A) 4 %; Neutrophils # (A) 11.3 k/uL (1.3-7.7); Neutrophils % (A) 76 %; Platelet Count 336 k/uL (150-450); RBC 5.43 m/uL (3.80-5.40); RDW 14.3 % (11.5-15.5); WBC 14.8 k/uL (3.8-10.6)
[2019-08-17 07:03] LABS: Calcium 8.2 mg/dL (8.4-10.2); Potassium 4.2 mmol/L (3.5-5.1)
--- NOTE | 2019-08-17 08:55 | XR ---
EXAMINATION TYPE: XR chest 1V portable DATE OF EXAM: 08/17/2019 COMPARISON: Prior chest x-ray dated 10/25/2017, 08/16/2019 HISTORY: Congestive heart failure TECHNIQUE: Single frontal view of the chest is obtained. FINDINGS: Patient is rotated. Postop changes are noted within the cervical thoracic spine. Pacemaker is stable with leads in the right atrium and ventricle, heart is likely enlarged. Aorta is aneurysma l and dense. No evident pneumothorax or pleural effusion. Heart is enlarged. Patchy density present i n the retrocardiac region. Interstitium is increased. Surgical clips present in the left breast regio n. IMPRESSION: Rotated exam. Possible subsegmental atelectasis. Aortic aneurysm, cardiomegaly. There ma y be a component of interstitial edema.
[2019-08-17 11:28] VITALS: BMI 17.9
[2019-08-17] MEDS: PANTOPRAZOLE 40 MG/10 ML VIAL IVP SCH (12:20)
--- NOTE | 2019-08-17 15:09 | P.PN ---
Subjective Progress Note Date: 08/17/19 Patient appears much more lethargic today. Patient's one of the daughter and multiple other relatives were present today. Patient has head deviated to the right. Per patient's daughter, she did wake up slightly earlier, wiped her face with the wash cloth that the children gave it to her. She opened eyes briefly. She has been mostly sleepy. Objective - Vital Signs Vital signs: Vital Signs Temp 97.5 F L 08/17/19 08:00 Pulse 89 08/17/19 11:53 Resp 16 08/17/19 11:53 BP 144/81 08/17/19 11:53 Pulse Ox 97 08/17/19 11:53 Intake & Output 08/16/19 08/17/19 08/17/19 18:59 06:59 18:59 Intake Total 0 Output Total 120 Balance -120 0 Weight 77.1 kg 49 kg 49 kg Intake: Oral 0 Output: Urine 120 Other: Voiding Method Indwelling Catheter Indwelling Catheter # Voids 1 - Labs CBC & Chem 7: 08/17/19 06:23 08/17/19 06:23 Labs: Abnormal Lab Results - Last 24 Hours (Table) 08/16/19 08/17/19 08/17/19 Range/Units 18:34 06:23 06:23 WBC 14.8 H (3.8-10.6) k/uL RBC 5.43 H (3.80-5.40) m/uL Hct 50.1 H (34.0-46.0) % Neutrophils # 11.3 H (1.3-7.7) k/uL Sodium 136 L (137-145) mmol/L Glucose 127 H (74-99) mg/dL Calcium 8.2 L (8.4-10.2) mg/dL Urine Protein 1+ H (Negative) Urine Ketones Trace H (Negative) Urine Blood Small H (Negative) Urine RBC 27 H (0-5) /hpf Urine Mucus Rare H (None) /hpf Assessment and Plan Assessment: * Acute ischemic CVA, left MCA vascular territory. CVA likely cardioembolic from patient's history of atrial fibrillation. Patient has been somewhat noncompliant with Eliquis, and misses about 3 times a week. * Dementia Plan: * Patient has a very large CVA, involving almost the entire left MCA vascular territory. Patient is globally aphasic and right hemiplegic. * Patient at present is DO NOT RESUSCITATE, DO NOT INTUBATE, and patient's family wants conservative treatment. * I would suggest palliative consultation to discuss goals of care. I would suggest consultation with hospice. * Patient's daughter discussed about repeating computed tomography scan of the head. As repeat computed tomography scan of the head will not alter any changes in her overall management, therefore there is no point of repeating the computed tomography scan of head. Patient's daughter agreed. * Continue comfort care.
[2019-08-17] MEDS: SODIUM CHLORIDE 0.9% 1,000 ML IV SCH (21:37)
--- NOTE | 2019-08-17 22:20 | PN ---
PROGRESS NOTE DATE OF SERVICE: 08/17/2019 This 84-year-old woman with a past medical history significant for dementia was admitted with significant stroke on the right side. The patient continues to be stuporous at this time. The patient has significant weakness of the right side. Minimal movement of the left side is observed. Neurology following the patient as mentioned. Please note that the family had decided not to undergo any intensive evaluations or treatment at this time. The patient is currently NO CODE. The patient being closely monitored on telemetry. PAST MEDICAL HISTORY: Reviewed. REVIEW OF SYSTEMS: Review of systems could not be taken because the patient is stuporous. CURRENT MEDICATIONS: Reviewed and include: 1. Heparin 5000 subcu b.i.d. 2. Synthroid 112 mcg. 3. Ativan 1 mg p.r.n. 4. Narcan p.r.n. 5. Protonix. PHYSICAL EXAM: Patient is alert, oriented x3. Pulse is 89. Blood pressure 140/81, respirations 16, temp is normal. Pulse ox 97% on room air. HEENT: Conjunctivae normal. NECK: No JVD. CARDIOVASCULAR: S1, S2 muffled. RESPIRATORY: Breath sounds diminished in the bases. A few scattered rhonchi. ABDOMEN: Soft. Nontender. LEGS are no edema. No swelling. CENTRAL NERVOUS SYSTEM: Significant right hemiplegia present. LABS: WBC 14.8, hemoglobin 15.8. UA noted. ASSESSMENT: 1. Acute left-sided MCA territory stroke causing right-sided hemiplegia. 2. Change in mental status, metabolic encephalopathy, acute on chronic. 3. History of dementia. 4. History of deep vein thrombosis. 5. Hypertension. 6. History of degenerative joint disease. 7. Hypothyroidism. 8. Chronic wound on the right heel history. 9. History of right breast surgery. 10.History of Ring's palsy in 2006. 11.History of cholecystectomy. 12.History of degenerative joint disease. 13.Remote history of nicotine dependence. 14.NO CODE, NO CPR, NO VENT. RECOMMENDATIONS AND DISCUSSION: I recommend to continue current medications, management and treatment. Otherwise, as mentioned earlier, the family has opted not to have any TPA or any other invasive testing or invasive evaluation. We will continue to monitor. PT/OT evaluation. Speech pathology evaluation. Neurology has been consulted. The patient had further multiple evaluations in [facility]. The portable chest x-ray done today showed some atelectasis. We will continue to monitor. Further recommendations to follow. See orders for details. MMODL / IJN: [id number] /
[2019-08-18] MEDS: LEVOTHYROXINE 112 MCG TAB PO SCH (05:24)
[2019-08-18] MEDS: SODIUM CHLORIDE 0.9% 1,000 ML IV SCH (05:55)
[2019-08-18 06:44] LABS: Basophils # (A) 0.2 k/uL (0-0.2); Basophils % (A) 1 %; Eosinophils # (A) 0.1 k/uL (0-0.7); Eosinophils % (A) 1 %; HCT 47.8 % (34.0-46.0); HGB 15.9 gm/dL (11.4-16.0); Lymphocytes # (A) 2.2 k/uL (1.0-4.8); Lymphocytes % (A) 14 %; MCH 30.2 pg (25.0-35.0); MCHC 33.3 g/dL (31.0-37.0); MCV 90.8 fL (80.0-100.0); Mean Platelet Volume 8.6; Monocytes # (A) 0.8 k/uL (0-1.0); Monocytes % (A) 5 %; Neutrophils # (A) 11.7 k/uL (1.3-7.7); Neutrophils % (A) 75 %; Platelet Count 338 k/uL (150-450); RBC 5.27 m/uL (3.80-5.40); RDW 14.4 % (11.5-15.5); WBC 15.6 k/uL (3.8-10.6)
[2019-08-18 07:02] LABS: African American GFR (CKD) >90 (>60 ml/min/1.73 sqM); Anion Gap 9 mmol/L; Blood Urea Nitrogen 14 mg/dL (7-17); Calcium 7.6 mg/dL (8.4-10.2); Carbon Dioxide 22 mmol/L (22-30); Chloride 104 mmol/L (98-107); Glucose 121 mg/dL (74-99); Non-African American GFR(CKD) 84 (>60 ml/min/1.73 sqM); Potassium 3.8 mmol/L (3.5-5.1); Sodium 135 mmol/L (137-145)
[2019-08-18] MEDS: PANTOPRAZOLE 40 MG/10 ML VIAL IVP SCH (08:07)
[2019-08-18] MEDS: HEPARIN SODIUM,PORCINE 5,000 UNIT/ML 1 ML VIAL SQ SCH ×2 (08:07→20:58)
--- NOTE | 2019-08-18 14:54 | P.PN ---
Subjective Progress Note Date: 08/18/19 Principal diagnosis: This is an 84-year-old female who was recently admitted with significant stroke on the right side and was being closely monitored. Patient continues to be stup orous and unresponsive to commands. neurology following the patient. Family has made the decision to not undergo any intensive treatments at this time. Multiple family members at the bedside requesting to speak with hospice. [facility] consulted. Case management following and arranging for possible [place] with [facility]. Patient currently remains a no code. Review of systems: Unable to obtain as the patient continues to be stuporous and unresponsive. Active Medications Heparin Sodium (Porcine) (Heparin) 5,000 unit SQ Q12HR [facility] Last Admin: 08/18/19 08:07 Dose: 5,000 unit Documented by: Sodium Chloride (Saline 0.9%) 1,000 mls @ 50 mls/hr IV .Q20H [facility] Last Admin: 08/18/19 05:55 Dose: 50 mls/hr Documented by: Levothyroxine Sodium (Synthroid) 112 mcg PO 0630 [facility] Last Admin: 08/18/19 05:24 Dose: Not Given Documented by: Lorazepam (Ativan) 1 mg IV Q6HR PRN PRN Reason: Anxiety Last Admin: 08/16/19 19:48 Dose: 1 mg Documented by: Naloxone HCl (Narcan) 0.2 mg IV Q2M PRN PRN Reason: Opioid Reversal Pantoprazole Sodium (Protonix) 40 mg IVP DAILY [facility] Last Admin: 08/18/19 08:07 Dose: 40 mg Documented by: Objective - Vital Signs Vital signs: Vital Signs Temp 98.9 F 08/18/19 08:00 Pulse 76 08/18/19 12:00 Resp 16 08/18/19 12:00 BP 196/78 08/18/19 12:00 Pulse Ox 94 L 08/18/19 12:00 Intake & Output 08/17/19 08/18/19 08/18/19 18:59 06:59 18:59 Intake Total 0 0 Output Total 450 675 Balance -450 -675 Weight 49 kg 49 kg Intake: Oral 0 0 Output: Urine 450 675 Other: Voiding Method Indwelling Catheter Indwelling Catheter Indwelling Catheter # Voids 1 200 - Exam Gen: This is a 84-year-old female lying in bed alert and oriented 0, unresponsive HEENT: Head is atraumatic, normocephalic. Sclerae is anicteric. NECK: Supple. No JVD. No lymphadenopathy. No thyromegaly. LUNGS: Diminished breath sounds at the bases with a few scattered rhonchi noted. No intercostal retractions. HEART: S1, S2 are muffled ABDOMEN: Soft. Bowel sounds are present. No masses palpable EXTREMITIES: No pedal edema. No calf tenderness. NEUROLOGICAL: Patient is stuporous, alert and oriented x0. 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 Awaiting [facility] hospice consult. Case management following closely and arranging for possible hospice at [facility]. We will continue to monitor closely. Further recommendations to follow. Possible discharge to hospice at [facility] in 24 hours.
--- NOTE | 2019-08-18 16:24 | P.PN ---
Subjective Progress Note Date: 08/18/19 Patient appears much more lethargic today, more as compared to yesterday. Patient's one of the daughter and multiple other relatives including her niece were present. Patient has head deviated to the right.She has been mostly sleepy. Objective - Vital Signs Vital signs: Vital Signs Temp 98.9 F 08/18/19 08:00 Pulse 83 08/18/19 16:00 Resp 16 08/18/19 16:00 BP 195/90 08/18/19 16:00 Pulse Ox 94 L 08/18/19 16:00 Intake & Output 08/17/19 08/18/19 08/18/19 18:59 06:59 18:59 Intake Total 0 0 Output Total 450 675 Balance -450 -675 Weight 49 kg 49 kg Intake: Oral 0 0 Output: Urine 450 675 Other: Voiding Method Indwelling Catheter Indwelling Catheter Indwelling Catheter # Voids 1 200 - Exam Deferred, as patient is undergoing hospice. - Labs CBC & Chem 7: 08/18/19 05:50 08/18/19 05:50 Labs: Abnormal Lab Results - Last 24 Hours (Table) 08/18/19 08/18/19 Range/Units 05:50 05:50 WBC 15.6 H (3.8-10.6) k/uL Hct 47.8 H (34.0-46.0) % Neutrophils # 11.7 H (1.3-7.7) k/uL Sodium 135 L (137-145) mmol/L Glucose 121 H (74-99) mg/dL Calcium 7.6 L (8.4-10.2) mg/dL Assessment and Plan Assessment: * Acute ischemic CVA, left MCA vascular territory. CVA likely cardioembolic fro m patient's history of atrial fibrillation. Patient has been somewhat noncompliant with Eliquis, and misses about 3 times a week. * Dementia Plan: * Patient has a very large CVA, involving almost the entire left MCA vascular territory. Patient is globally aphasic and right hemiplegic. * Patient at present is DO NOT RESUSCITATE, DO NOT INTUBATE, * Patient is undergoing hospice care from tomorrow. * Continue comfort care. * Neurology will sign off.
[2019-08-19] MEDS: SODIUM CHLORIDE 0.9% 1,000 ML IV SCH (05:53)
[2019-08-19] MEDS: LEVOTHYROXINE 112 MCG TAB PO SCH (05:54)
[2019-08-19 07:14] LABS: Basophils # (A) 0.3 k/uL (0-0.2); Basophils % (A) 2 %; Eosinophils # (A) 0.1 k/uL (0-0.7); Eosinophils % (A) 0 %; HCT 52.7 % (34.0-46.0); HGB 17.4 gm/dL (11.4-16.0); Lymphocytes # (A) 2.5 k/uL (1.0-4.8); Lymphocytes % (A) 14 %; MCV 90.9 fL (80.0-100.0); Mean Platelet Volume 8.8; Monocytes % (A) 6 %; Neutrophils # (A) 13.7 k/uL (1.3-7.7); Neutrophils % (A) 76 %; Platelet Count 396 k/uL (150-450); RBC 5.79 m/uL (3.80-5.40); RDW 14.3 % (11.5-15.5); WBC 17.9 k/uL (3.8-10.6)
[2019-08-19 07:28] LABS: African American GFR (CKD) >90 (>60 ml/min/1.73 sqM); Anion Gap 11 mmol/L; Blood Urea Nitrogen 16 mg/dL (7-17); Calcium 7.4 mg/dL (8.4-10.2); Carbon Dioxide 20 mmol/L (22-30); Chloride 99 mmol/L (98-107); Glucose 125 mg/dL (74-99); Non-African American GFR(CKD) 87 (>60 ml/min/1.73 sqM); Potassium 3.6 mmol/L (3.5-5.1); Sodium 130 mmol/L (137-145)
[2019-08-19] MEDS: PANTOPRAZOLE 40 MG/10 ML VIAL IVP SCH (09:21)
[2019-08-19] MEDS: HEPARIN SODIUM,PORCINE 5,000 UNIT/ML 1 ML VIAL SQ SCH (09:21)
--- NOTE | 2019-08-19 10:12 | P.DS ---
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 [facility] is following. Total time taken is 35 minutes. History of present illness This is an 84-year-old female who was recently admitted with significant stroke on the right side and was being closely monitored. Patient continued to be stuporous and unresponsive and family has opted for no intensive treatment at this time and has signed on with [facility] and patient will be going to [facility] today with hospice. Patient remains a no code. Prognosis is poor. On exam vital signs are stable. Temp was 100F, pulse is 77, respirations are 28, blood pressure is 186/86, oxygen saturation is 95% on room air. Cardio S1, S2 are muffled. Respiratory system shows diminished breath sounds with some rhonchi noted. Abdomen is soft. Nervous system shows right side deviation. Please refer to medication reconciliation sheet for a list of medications. Patient Condition at Discharge: Poor Plan - Discharge Summary Discharge Rx Participant: No New Discharge Prescriptions: New LORazepam [Ativan] 0.5 mg PO Q4H PRN #3 tab PRN Reason: Agitation Atropine Ophth Soln 1% 5Ml [Isopto Atropine 1% 5Ml] 1 drop SUBLINGUAL Q4H PRN #1 bottle PRN Reason: Secretions MORPHINE ORAL BELL CONC 20mg/mL [Roxanol Oral Soln Conc 20MG/ML] 5 mg PO Q4H PRN 3 Days #9 ml PRN Reason: Pain Discontinued Cholecalciferol [Vitamin D3] 1,000 unit PO DAILY Levothyroxine Sodium [Levoxyl] 112 mcg PO QAM Metoprolol Succinate (ER) [Toprol XL] 25 mg PO QAM Omeprazole [PriLOSEC] 20 mg PO AC-BRKFST Letrozole [Femara] 2.5 mg PO DAILY Atorvastatin [Lipitor] 10 mg PO HS Multivitamins, Thera [Multivitamin (formulary)] 1 tab PO DAILY Apixaban [Eliquis] 2.5 mg PO BID Memantine [Namenda] 5 mg PO BID Calcium Carbonate 500 mg PO BID Losartan/Hydrochlorothiazide [Losartan-Hctz 100-25 mg Tab] 1 tab PO DAILY Donepezil [Aricept] 5 mg PO BID Discharge Medication List Atropine Ophth Soln 1% 5Ml [Isopto Atropine 1% 5Ml] 1 drop SUBLINGUAL Q4H PRN #1 bottle 08/19/19 [Rx] LORazepam [Ativan] 0.5 mg PO Q4H PRN #3 tab 08/19/19 [Rx] MORPHINE ORAL BELL CONC 20mg/mL [Roxanol Oral Soln Conc 20MG/ML] 5 mg PO Q4H PRN 3 Days #9 ml 08/19/19 [Rx] Follow up Appointment(s)/Referral(s): Zhang Leal, [NON-STAFF] - 1 Week Activity/Diet/Wound Care/Special Instructions: Zhang with hospice Discharge Disposition: [facility] TO HOSPICE MED FACILTY
[2019-08-19 12:18] VITALS: BP 209/103; PULSE 66; RESP 20; TEMP 100.3
== END 2019-08-19 13:40 | disposition hospice, inpatient (51) | DRG 64 ==
LOC: EC 12:26 → 3SCARD 15:16
PROVIDERS: ADMIT Hospitalist; ATTEND Hospitalist
DX: I63.412 Cerebral infarction due to embolism of left middle cerebral artery (principal); G92 Toxic encephalopathy; G93.6 Cerebral edema; G93.5 Compression of brain; R40.2213 Coma scale, best verbal response, none, at hospital admission; G81.91 Hemiplegia, unspecified affecting right dominant side; E03.9 Hypothyroidism, unspecified; Z51.5 Encounter for palliative care; Z66 Do not resuscitate; R40.2353 Coma scale, best motor response, localizes pain, at hospital admission; R40.2133 Coma scale, eyes open, to sound, at hospital admission; Z96.653 Presence of artificial knee joint, bilateral; I48.91 Unspecified atrial fibrillation; F03.90 Unspecified dementia, unspecified severity, without behavioral disturbance, psychotic disturbance, mood disturbance, and anxiety; M19.90 Unspecified osteoarthritis, unspecified site; I10 Essential (primary) hypertension; Z79.01 Long term (current) use of anticoagulants; Z79.890 Hormone replacement therapy; Z79.899 Other long term (current) drug therapy; Z82.49 Family history of ischemic heart disease and other diseases of the circulatory system; Z86.718 Personal history of other venous thrombosis and embolism; Z86.73 Personal history of transient ischemic attack (TIA), and cerebral infarction without residual deficits; Z87.891 Personal history of nicotine dependence; Z90.49 Acquired absence of other specified parts of digestive tract; Z90.710 Acquired absence of both cervix and uterus; Z91.14 Patient's other noncompliance with medication regimen; Z90.89 Acquired absence of other organs; Z83.79 Family history of other diseases of the digestive system
CPT/HCPCS: 71045; 80048; 81001; 85025; 96374; 96375; 99285